=== PATIENT | female | born 1985 | race Caucasian/White ===

== ENCOUNTER 2018-10-14 13:43 | Emergency (ER) | payer OTHER ==
[2018-10-14 13:50] VITALS: BP 125/92; TEMP 98; BMI 29.5
[2018-10-14] MEDS ORDERED: predniSONE 20 MG TABLET (UD) PO ONE (14:04)
[2018-10-14] MEDS ORDERED: ALBUTEROL SO4 2.5/IPRATROPIUM 0.5 INH SOL 3 ML VIAL.NEB. NEB ONE ×2 (14:04→14:09)
--- NOTE | 2018-10-14 14:04 | PDOC ---
History of Present Illness - General Chief Complaint: Respiratory Stated Complaint: COUGHING Time Seen by Provider: 10/14/18 13:50 History Source: Patient Exam Limitations: No Limitations - History of Present Illness Initial Comments: CHIEF COMPLAINT: 33 y/o afebrile female with PMH asthma c/o cough, nasal congestion and head congestion x 1 week. HISTORY OF PRESENT ILLNESS: The patient admits that she ran out of her inhaler. She has been taking mucinex since yesterday. She denies fever, sore throat, earache, n/v/d, CP, SOB, abd pain, back pain, hematuria, dysuria. The patient is a smoker. Vital signs on arrival are notable for pulse of 101. REVIEW OF SYSTEMS: GENERAL/CONSTITUTIONAL: No fever/chills. No weakness. No weight change. HEAD, EYES, EARS, NOSE AND THROAT: +ear pressure. +head and nasal congestion. No change in vision. No ear pain or discharge. No sore throat. CARDIOVASCULAR: No chest pain or shortness of breath. RESPIRATORY: +cough. No wheezing or hemoptysis. GASTROINTESTINAL: No nausea, vomiting, diarrhea. GENITOURINARY: No dysuria, frequency, or change in urination. MUSCULOSKELETAL: No joint or muscle swelling or pain. No neck or back pain. SKIN: No rash or easy bruising. NEUROLOGIC: No headache, vertigo, loss of consciousness, or loss of sensation. PHYSICAL EXAM: GENERAL: The patient is awake, alert, and fully oriented, in no acute distress. She is well appearing and has a dry cough. HEAD: Normal with no signs of trauma. No TTP of sinuses. ENT: Pupils equal, round and reactive to light, extraocular movements intact, sclera anicteric, conjunctiva clear. TMs and canals normal b/l. +nasal congestion LUNGS: Very faint wheezing to b/l bases. Normal excursion. No respiratory distress or use of accessory muscles. CV: RRR, S1/S2, no MRG. Cap refill < 2 sec. ABDOMEN: Soft, non-distended, non-tender even to deep palpation, no hepatomegaly or splenomegaly, no masses. EXTREMITIES: Normal range of motion, no edema. NEUROLOGICAL: Normal speech, normal gait. CN II-XII grossly intact. SKIN: Warm, dry, normal turgor, no rashes or lesions noted. Past History - Past Medical History Allergies/Adverse Reactions: Allergies Allergy/AdvReac Type Severity Reaction Status Date / Time No Known Allergies Allergy Verified 10/14/18 13:47 Home Medications: Ambulatory Orders Albuterol Sulfate Inhaler - [Ventolin HFA Inhaler -] 1 - 2 inh PO Q4H #1 inhaler 10/14/18 Prednisone [Deltasone] 40 mg PO DAILY #8 tablet 10/14/18 Asthma: Yes COPD: No GI Disorders: Yes (Acid reflux) - Immunization History Immunization Up to Date: Yes - Suicide/Smoking/Psychosocial Hx Smoking Status: No Smoking History: Never smoked Have you smoked in the past 12 months: Yes Number of Cigarettes Smoked Daily: 5 'Breaking Loose' booklet given: 06/12/16 Hx Alcohol Use: No Drug/Substance Use Hx: No Substance Use Type: None *Physical Exam - Vital Signs Last Vital Signs Temp Pulse Resp BP Pulse Ox 98 F 101 H 20 125/92 99 10/14/18 13:46 10/14/18 13:46 10/14/18 13:46 10/14/18 13:46 10/14/18 13:46 Moderate Sedation - Procedure Monitoring Vital Signs: Procedure Monitoring Vital Signs Temperature 98 F 10/14/18 13:46 Pulse Rate 101 H 10/14/18 13:46 Respiratory Rate 20 10/14/18 13:46 Blood Pressure 125/92 10/14/18 13:46 O2 Sat by Pulse Oximetry (%) 99 10/14/18 13:46 Medical Decision Making - Medical Decision Making A/P: 33 y/o female with nasal congestion and URI. will give duoneb and prednisone in the ER. Will send rx for inhaler, 4 day course of prednisone to pharmacy. also suggested OTC allergy medications. Patient instructed to drink plenty of fluids and f/u with her doctor if no improvement in 3-5 days. After nebulizer lungs are CTA. Heart rate is now WNL at 88bpm. will d/c to home. The patient verbalizes understanding of all instructions, has no further questions and is awaiting discharge. *DC/Admit/Observation/Transfer Diagnosis at time of Disposition: Viral upper respiratory infection, Common cold - Discharge Dispostion Condition at time of disposition: Improved - Prescriptions Prescriptions: Albuterol Sulfate Inhaler - [Ventolin HFA Inhaler -] 1 - 2 inh PO Q4H #1 inhaler Prednisone [Deltasone] 40 mg PO DAILY #8 tablet - Referrals Referrals: Gregorio Henao MD [Staff Physician] - - Patient Instructions Printed Discharge Instructions: Common Cold, DI for Viral Upper Respiratory Infection -- Adult, DI for Nasal Congestion Additional Instructions: Discharge Instructions: -2 prescriptions haven been sent to your pharmacy; please take as prescribed -Take over the counter zyrtec and sudafed to help with nasal congestion -you can continue taking mucinex for cough -Drink at least 64oz of water daily -Follow up with your doctor or Dr. Henao next week - Post Discharge Activity Forms/Work/School Notes: Back to Work
[2018-10-14] MEDS ORDERED: predniSONE 20 MG TABLET (UD) ONE (14:09)
[2018-10-14 14:36] VITALS: PULSE 88
== END 2018-10-14 14:36 | disposition home or self-care (01) ==
LOC: JERFT 13:43
PROC: 3E0F7GC Introduction of Other Therapeutic Substance into Respiratory Tract, Via Natural or Artificial Opening (ICD-10-PCS; principal; 2018-10-14)
DX: J06.9 Acute upper respiratory infection, unspecified (principal); J00 Acute nasopharyngitis [common cold]
CPT/HCPCS: 99281-25

== ENCOUNTER 2021-08-13 01:18 | Emergency (ER) | payer OTHER ==
[2021-08-13 02:02] VITALS: BP 114/62; PULSE 98; TEMP 98.7; BMI 35.5
[2021-08-13] MEDS ORDERED: ACETAMINOPHEN 500 MG TABLET (FP) PO ONE (02:16)
[2021-08-13] MEDS ORDERED: FLUCONAZOLE 150 MG TABLET PO ONE ×2 (02:42→02:53)
== END 2021-08-13 03:32 | disposition home or self-care (01) ==
LOC: JER 01:18
DX: J06.9 Acute upper respiratory infection, unspecified (principal)
CPT/HCPCS: 87804; 99283-25; C9803; U0003; U0005

== ENCOUNTER 2021-12-19 17:29 | Emergency (ER) | payer OTHER ==
[2021-12-19 17:35] VITALS: BP 124/86; PULSE 111; TEMP 97; BMI 36.9
[2021-12-19] MEDS ORDERED: ERYTHROMYCIN 0.5% OPHTHALMIC OINTMENT 3.5 GM TUBE OU ONE (18:59)
[2021-12-19 19:07] LABS: PH,URINE 7.5 (5.0-8.0); URINE APPEARANCE CLEAR; URINE BILIRUBIN NEGATIVE (NEGATIVE); URINE COLOR YELLOW; URINE GLUCOSE (UA) NEGATIVE (NEGATIVE); URINE KETONE NEGATIVE (NEGATIVE); URINE LEUK ESTERASE NEGATIVE (NEGATIVE); URINE NITRITE NEGATIVE (NEGATIVE); URINE PROTEIN NEGATIVE (NEGATIVE); URINE UROBILINOGEN 0.2 mg/dL (0.2-1.0)
[2021-12-19 19:10] LABS: HCG,QUALITATIVE URINE Negative
[2021-12-19] MEDS ORDERED: FLUCONAZOLE 150 MG TABLET PO ONE ×2 (19:48→19:51)
[2021-12-19] MEDS ORDERED: diphenhydrAMINE HCL 25 MG CAPSULE (FP) PO ONE ×2 (19:48→19:51)
[2021-12-19] MEDS ORDERED: ERYTHROMYCIN 0.5% OPHTHALMIC OINTMENT 3.5 GM TUBE ONE (19:51)
== END 2021-12-19 21:15 | disposition home or self-care (01) ==
LOC: JER 17:29 → JERFT 17:29
DX: L29.9 Pruritus, unspecified (principal); N89.8 Other specified noninflammatory disorders of vagina; H01.113 Allergic dermatitis of right eye, unspecified eyelid; H01.116 Allergic dermatitis of left eye, unspecified eyelid
CPT/HCPCS: 36415; 81003; 84703; 87070; 87077; 87086; 87205; 87491; 87591; 99283-25

== ENCOUNTER 2022-12-04 21:41 | Emergency (ER) | payer OTHER ==
[2022-12-04 22:07] VITALS: PULSE 95; RESP 19; TEMP 98.6; BMI 38.3
[2022-12-04 22:44] VITALS: BP 134/65
[2022-12-05] MEDS ORDERED: MAG HYDROX/AL HYDROX/SIMETH 30 ML UNIT-DOSE CUP PO ONE (00:12)
[2022-12-05] MEDS ORDERED: MAG HYDROX/AL HYDROX/SIMETH 30 ML UNIT-DOSE CUP ONE (00:14)
[2022-12-05 00:47] LABS: HCG,QUALITATIVE URINE Negative
[2022-12-05 00:48] LABS: EPI CELLS 24 /uL (0-25.1); HYALINE CASTS 0 /uL (0-3.1); PH,URINE 5.5 (5.0-8.0); URINE APPEARANCE CLEAR; URINE BACTERIA 141 /uL (0-1359); URINE BILIRUBIN NEGATIVE (NEGATIVE); URINE COLOR YELLOW; URINE GLUCOSE (UA) NEGATIVE (NEGATIVE); URINE KETONE TRACE (NEGATIVE); URINE LEUK ESTERASE NEGATIVE (NEGATIVE); URINE NITRITE NEGATIVE (NEGATIVE); URINE PROTEIN NEGATIVE (NEGATIVE); URINE RBC 11 /uL (0-23.9); URINE UROBILINOGEN 0.2 mg/dL (0.2-1.0); URINE WBC 5 /uL (0-25.8)
[2022-12-05] MEDS ORDERED: FLUCONAZOLE 50 MG TABLET PO ONE (01:22)
[2022-12-05] MEDS ORDERED: FLUCONAZOLE 150 MG TABLET PO ONE (01:24)
[2022-12-05] MEDS ORDERED: ACETAMINOPHEN 500 MG TABLET (FP) ONE (01:30)
[2022-12-05] MEDS ORDERED: ACETAMINOPHEN 500 MG TABLET (FP) PO ONE (01:33)
== END 2022-12-05 01:34 | disposition home or self-care (01) ==
LOC: JER 21:41
DX: B37.31 Acute candidiasis of vulva and vagina (principal)
CPT/HCPCS: 0241U-QW; 36415; 81003; 84703; 87077; 87086; 87491; 87591; 99283-25

== ENCOUNTER 2023-05-10 22:38 | Emergency (ER) | payer OTHER ==
[2023-05-10 22:44] VITALS: BP 111/72; PULSE 104; RESP 18; TEMP 98.9; BMI 36.3
[2023-05-10] MEDS ORDERED: DIPHTH,PERTUSS(ACELL),TET 0.5 ML DISP.SYRIN IM ONE (23:52)
[2023-05-10] MEDS ORDERED: AMOX TR/POT CLAV 875MG/125MG TABLETS (FP) PO ONE (23:52)
[2023-05-11] MEDS ORDERED: AMOX TR/POT CLAV 875MG/125MG TABLETS (FP) ONE
[2023-05-11] MEDS ORDERED: DIPHTH,PERTUSS(ACELL),TET 0.5 ML DISP.SYRIN IM ONE
[2023-05-11 00:17] LABS: BASO % 0.3 % (0-2.0); EOS % 0.5 % (0-4.5); HEMATOCRIT 34.9 % (32.4-45.2); HEMOGLOBIN 11.5 GM/dL (10.7-15.3); MCH 29.5 pg (25.7-33.7); MCHC 33.1 g/dl (32.0-36.0); MEAN CELL VOLUME 89.2 fl (80-96); MEAN PLT VOLUME 7.5 fl (7.5-11.1); MONO % 6.1 % (3.8-10.2); NEUT % 82.1 % (42.8-82.8); PLATELET COUNT 295 10^3/uL (134-434); RBC 3.91 M/mm3 (3.60-5.2); RDW 14.8 % (11.6-15.6); WHITE BLOOD COUNT 17.6 K/mm3 (4.0-10.0)
[2023-05-11 00:37] LABS: POTASSIUM 3.8 mmol/L (3.5-5.1)
[2023-05-11 00:39] LABS: ALBUMIN 3.3 g/dl (3.4-5.0); BLOOD UREA NITROGEN 9.6 mg/dL (7-18); CALCIUM 8.9 mg/dL (8.5-10.1)
[2023-05-11 00:42] LABS: CREATININE 0.7 mg/dL (0.55-1.3)
[2023-05-11 00:44] LABS: TOT PROT 7.1 g/dl (6.4-8.2)
[2023-05-11 00:50] LABS: BILIRUBIN,TOTAL 0.2 mg/dL (0.2-1)
[2023-05-11 02:09] LABS: EPI CELLS 30 /uL (0-25.1); HYALINE CASTS 0 /uL (0-3.1); URINE APPEARANCE CLEAR; URINE BACTERIA 421 /uL (0-1359); URINE BILIRUBIN NEGATIVE (NEGATIVE); URINE COLOR YELLOW; URINE GLUCOSE (UA) NEGATIVE (NEGATIVE); URINE KETONE NEGATIVE (NEGATIVE); URINE LEUK ESTERASE NEGATIVE (NEGATIVE); URINE NITRITE NEGATIVE (NEGATIVE); URINE PROTEIN NEGATIVE (NEGATIVE); URINE RBC 26 /uL (0-23.9); URINE UROBILINOGEN 0.2 mg/dL (0.2-1.0); URINE WBC 2 /uL (0-25.8)
[2023-05-11 02:18] LABS: METHADONE, UR NEGATIVE (NEGATIVE); OPIATES, URI NEGATIVE (NEGATIVE); URINE AMPHETAMINES NEGATIVE (NEGATIVE); URINE BENZODIAZEPINES NEGATIVE (NEGATIVE)
[2023-05-11 02:19] LABS: URINE BARBITURATES NEGATIVE (NEGATIVE)
[2023-05-11 02:28] LABS: COCAINE, UR NEGATIVE (NEGATIVE); PHENCYCLIDINE,URINE POSITIVE (NEGATIVE)
== END 2023-05-11 02:41 | disposition home or self-care (01) ==
LOC: JER 22:38
PROC: 3E0234Z Introduction of Serum, Toxoid and Vaccine into Muscle, Percutaneous Approach (ICD-10-PCS; principal; 2023-05-11)
DX: J03.90 Acute tonsillitis, unspecified (principal); J02.0 Streptococcal pharyngitis; Y04.2XXA Assault by strike against or bumped into by another person, initial encounter
CPT/HCPCS: 36415; 71046-TC-FY; 80053; 80307; 81003; 84703; 85025; 87086; 87651; 90715; 99284-25